=== PATIENT | male | born 1990 | race Two or more races ===

== ENCOUNTER → 2021-08-05 | Outpatient (CLI) | payer OTHER | END | disposition home or self-care (01) | LOC: LAB 02:01 | DX: D68.62 Lupus anticoagulant syndrome (principal); D68.51 Activated protein C resistance; D68.52 Prothrombin gene mutation; E72.12 Methylenetetrahydrofolate reductase deficiency; E11.65 Type 2 diabetes mellitus with hyperglycemia; E03.8 Other specified hypothyroidism ==